=== PATIENT | female | born 1965 | race Caucasian/White ===

== ENCOUNTER → 2021-04-30 07:17 | Outpatient (CLI) | payer BC, SELFPAY ==
[2021-04-30 10:27] LABS: Anion Gap 7 (5-15); BUN 15 mg/dL (7-18); BUN/Creat Ratio 20.2 RATIO (10-20); Calcium,Total 9.4 mg/dL (8.5-10.1); Chloride 105 mmol/L (98-107); Cholesterol 159 mg/dL (200); Creatinine, Serum 0.74 mg/dL (0.55-1.02); EST Glomerular Filtration Rate 86 mL/min (>60); Est Glom Filt Rate - Afr Amer 103 mL/min (>60); Free T3 2.4 pg/mL (2.18-3.98); Glucose 91 mg/dL (74-106); High Density Lipoprotein 50 mg/dL; Potassium 3.9 mmol/L (3.5-5.1); Sodium Level 143 mmol/L (136-145); T4 Free Direct 1.06 ng/dL (0.76-1.46); Thyroid Stim Hormone (TSH) 1.57 uIU/mL (0.358-3.74); Triglycerides 101 mg/dL; Very Low Density Lipoprotein 20 mg/dL (5-40)
[2021-04-30 10:28] LABS: Hemoglobin A1c 5.3 % (3.8-5.6)
== END ==
DX: E03.9 Hypothyroidism, unspecified (principal); I10 Essential (primary) hypertension; E78.2 Mixed hyperlipidemia
CPT/HCPCS: 36415; 80048; 80061; 83036; 84439; 84443; 84481

== ENCOUNTER 2021-09-12 09:16 | Outpatient (CLI) | payer BC, SELFPAY ==
[2021-09-12 11:13] LABS: Anion Gap 5 (5-15); BUN 14 mg/dL (7-18); BUN/Creat Ratio 17.9 RATIO (10-20); Calcium,Total 9.2 mg/dL (8.5-10.1); Chloride 107 mmol/L (98-107); Cholesterol 155 mg/dL (200); Creatinine, Serum 0.78 mg/dL (0.55-1.02); EST Glomerular Filtration Rate 81 mL/min (>60); Est Glom Filt Rate - Afr Amer 98 mL/min (>60); Glucose 99 mg/dL (74-106); High Density Lipoprotein 57 mg/dL; Potassium 3.5 mmol/L (3.5-5.1); Sodium Level 141 mmol/L (136-145); Thyroid Stim Hormone (TSH) 4.07 uIU/mL (0.358-3.74); Triglycerides 104 mg/dL; Very Low Density Lipoprotein 21 mg/dL (5-40)
[2021-09-12 11:24] LABS: Hemoglobin A1c 5.3 % (3.8-5.6)
== END 2021-09-12 23:59 | disposition home or self-care (01) ==
PROVIDERS: Visit Provider Family Medicine
DX: R73.03 Prediabetes (principal); E03.9 Hypothyroidism, unspecified; I10 Essential (primary) hypertension; E78.2 Mixed hyperlipidemia
CPT/HCPCS: 36415; 80048; 80061; 83036; 84439; 84443

== ENCOUNTER → 2022-03-12 | Outpatient (CLI) | payer BC, SELFPAY ==
[2022-03-12 15:42] LABS: Anion Gap 5 (5-15); BUN 10 mg/dL (7-18); BUN/Creat Ratio 12.4 RATIO (10-20); Calcium,Total 9.3 mg/dL (8.5-10.1); Chloride 105 mmol/L (98-107); Cholesterol 170 mg/dL (200); EST Glomerular Filtration Rate 78 mL/min (>60); Est Glom Filt Rate - Afr Amer 94 mL/min (>60); Glucose 102 mg/dL (74-106); High Density Lipoprotein 53 mg/dL; Potassium 3.5 mmol/L (3.5-5.1); Sodium Level 141 mmol/L (136-145); Thyroid Stim Hormone (TSH) 0.09 uIU/mL (0.358-3.74); Triglycerides 132 mg/dL; Very Low Density Lipoprotein 26 mg/dL (5-40)
[2022-03-12 15:57] LABS: Hemoglobin A1c 5.3 % (3.8-5.6)
== END | disposition home or self-care (01) ==
LOC: MTLAB 11:45
PROVIDERS: Visit Provider Family Medicine
DX: R73.03 Prediabetes (principal); E03.9 Hypothyroidism, unspecified; I10 Essential (primary) hypertension; E78.2 Mixed hyperlipidemia
CPT/HCPCS: 36415; 80048; 80061; 83036; 84443

== ENCOUNTER → 2022-09-23 | Outpatient (CLI) | payer OTHER, SELFPAY ==
[2022-09-23 10:35] LABS: Hemoglobin A1c 5.5 % (3.8-5.6)
[2022-09-23 10:38] LABS: Anion Gap 6 (5-15); BUN 15 mg/dL (7-18); BUN/Creat Ratio 18.1 RATIO (10-20); Calcium,Total 9.5 mg/dL (8.5-10.1); Chloride 109 mmol/L (98-107); Cholesterol 161 mg/dL (200); Creatinine, Serum 0.83 mg/dL (0.55-1.02); EST Glomerular Filtration Rate 75 mL/min (>60); Est Glom Filt Rate - Afr Amer 91 mL/min (>60); Glucose 104 mg/dL (74-106); High Density Lipoprotein 61 mg/dL; Potassium 3.7 mmol/L (3.5-5.1); Sodium Level 141 mmol/L (136-145); Triglycerides 71 mg/dL; Uric Acid 5.7 mg/dL (2.6-6.0); Very Low Density Lipoprotein 14 mg/dL (5-40)
== END | disposition home or self-care (01) ==
DX: E03.9 Hypothyroidism, unspecified (principal); I10 Essential (primary) hypertension; E78.2 Mixed hyperlipidemia; M1A.9XX0 Chronic gout, unspecified, without tophus (tophi); R73.03 Prediabetes
CPT/HCPCS: 36415; 80048; 80061; 83036; 84443; 84550

== ENCOUNTER → 2023-02-21 | Outpatient (CLI) | payer OTHER, SELFPAY ==
[2023-02-21 11:25] LABS: Hemoglobin A1c 5.4 % (3.8-5.6)
[2023-02-21 11:35] LABS: Anion Gap 5 (5-15); BUN 13 mg/dL (7-18); Calcium,Total 9.1 mg/dL (8.5-10.1); Chloride 107 mmol/L (98-107); Cholesterol 165 mg/dL (200); Creatinine, Serum 0.82 mg/dL (0.55-1.02); EST Glomerular Filtration Rate 76 mL/min (>60); Est Glom Filt Rate - Afr Amer 93 mL/min (>60); Glucose 97 mg/dL (74-106); High Density Lipoprotein 57 mg/dL; Potassium 3.4 mmol/L (3.5-5.1); Sodium Level 141 mmol/L (136-145); Triglycerides 71 mg/dL; Very Low Density Lipoprotein 14 mg/dL (5-40)
== END | disposition home or self-care (01) ==
DX: R73.03 Prediabetes (principal)
CPT/HCPCS: 36415; 80048; 80061; 83036

== ENCOUNTER → 2023-09-16 | Outpatient (CLI) | payer SELFPAY ==
--- OUTSIDE RECORDS SUMMARY | 2023-09-16 12:01 | XMS RPT_ITS | CCD ---
Author Name Unknown Address [address] [facility] [address] [place] [address] Organization [facility] Care Team Providers Care Museum Informatics Specialist Name Role Phone Joshua Garcia Primary Care Provider Tory Vickers MD Primary Care Provider CHANDRIKA SYLVESTER Referring Unavailable TORY VICKERS Primary Care Unavailable Paolo Doe Unavailable Unavailable Unavailable Paolo Doe Unavailable Unavailable Unavailable Dr. Paolo Doe Attending Unava ilwu Doe, Dr. Paolo Crews Referring Unava ilwu Doe, Dr. Paolo Crews Referring Unava ilwu Doe, Dr. Paolo Crews Attending Carroll ilwu Doe, Dr. Paolo Crews Referring Unava ilwu Doe, Dr. Paolo Crews Attending Paolo Stockton MD Primary Care Provider PAOLO DOE Attending Unavailable PAOLO DOE Primary Care Unavailable PAOLO DOE Attending Unavailable PAOLO DOE Primary Care Unavailable Allergies Allergy Classification Reported Allergen(s) Allergy Type Date of Onset Reaction(s) Facility Aminoketones (2 sources) buPROPion; Translations: [buPROPion HCl TABS] Drug Allergy 1 [facility] Unclassified (9 sources) Iodinated Contrast Media; Translations: [Iodinated Contrast Media] Allergy to drug (finding) 3 [facility] 3 Repository (9 sources) buPROPion; Translations: [buPROPion HCl TABS] Drug Allergy 1 Rash, [place], [place] (2 sources) Iodides Propensity to adverse reactions to drug 1 [place] (1 source) Iodinated Contrast Media Drug Allergy 3 [facility] Work Phone: (1 source) buPROPion; Translations: [BUPROPION] Drug Allergy 1 [facility] 3 Repository Medications Current Medications Medication Drug Class(es) Dates Sig (Normalized) Sig (Original) ARIPiprazole 2 mg oral tablet (1 source) Atypical Antipsychotic take 1 tablet by mouth once daily ARIPiprazole (ABILIFY) 2 MG tablet Take 2 mg by mouth daily 0 Active ascorbic acid 500 mg chewable tablet (3 sources) Vitamin C ascorbic acid (Vitamin C) 500 mg chewable tablet Chew 2 tablets (1,000 mg) once daily. 0 Active Completed/Discontinued Medications Medication Drug Class(es) Dates Sig (Normalized) Sig (Original) atorvastatin 20 mg oral tablet (13 sources) HMG-CoA Reductase Inhibitor Start: 03-10-2020 take 1 tablet by mouth once daily Atorvastatin Calcium 20 MG Oral Tablet TAKE 1 TABLET DAILY. Quantity: 90 Refills: 1 Ordered: 12-Sep-2022 Paolo Doe MD Start : 09-Mar-2021 Active Problems Active Problems Problem Classification Problem Date Documented Da te Episodic/Chronic Anxiety disorders (8 sources) Anxiety; Translations: [Other anxiety states] Chronic Diabetes mellitus without complication (12 sources) Prediabetes; Translations: [Other abnormal glucose] Onset: 01-08-2023 01-08-2023 Episodic Disorders of lipid metabolism (11 sources) Mixed hyperlipidemia; Translations: [Mixed hyperlipidemia] Onset: 01-08-2023 01-08-2023 Chronic Essential hypertension (14 sources) Hypertensive disorder; Translations: [Essential (primary) hypertension] Onset: 10-27-2011 10-27-2011 Chronic Gout and other crystal arthropathies (5 sources) Gout; Translations: [Chronic 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)] Chronic Mood disorders (10 sources) Depressive disorder; Translations: [Major depressive disorder, single episode, unspecified] Onset: 09-23-2011 09-23-2011 Chronic Other inflammatory condition of skin (5 sources) Psoriasis; Translations: [Other psoriasis] Chronic Other nutritional; endocrine; and metabolic disorders (2 sources) Obesity; Translations: [Obesity, unspecified] Onset: 05-30-2017 05-30-2017 Chronic Other screening for suspected conditions (not mental disorders or infectious disease) (3 sources) Patient encounter status; Translations: [Encounter for screening for malignant neoplasm of colon] Onset: 03-19-2023 Resolved: 01-21-2017 01-21-2017 Episodic Residual codes; unclassified (1 source) Immunity to measles and mumps and rubella by positive serology; Translations: [Immunity to measles, mumps, and rubella determined by serologic test] Thyroid disorders (13 sources) Hypothyroidism; Translations: [Hypothyroidism, unspecified] Onset: 11-08-2022 05-30-2017 Chronic Unclassified (2 sources) Patient encounter status; Translations: [Encounter for hepatitis C screening test for low risk patient] Resolved: 01-21-2017 01-21-2017 Past or Other Problems Problem Classification Problem Date Documented Da te Episodic/Chronic Fracture of upper limb (2 sources) Fracture of shaft of humerus ; Translations: [Displaced oblique fracture of shaft of humerus, unspecified arm, subsequent encounter for fracture with nonunion] Onset: 03-10-2012 Episodic Hemorrhoids (2 sources) Hemorrhoids; Translations: [Unspecified hemorrhoids] Onset: 01-23-2015 01-23-2015 Episodic Results Test Name Value Interpretation Reference Range Facil ity Vital Signs Date Time Vital Sign Value Performing Clinician Facility 01-08-2023 15:48-0400 Body mass index (BMI) [Ratio] 32.65 kg/m2 Paolo Doe MD Work Phone: [facility] 01-08-2023 15:48-0400 Body weight 89.54 kg Paolo Doe MD Work Phone: [facility] 01-08-2023 15:48-0400 Diastolic blood pressure 86 mm[Hg] Paolo Doe MD Work Phone: [facility] 01-08-2023 15:48-0400 Heart rate 70 /min Paolo Doe MD Work Phone: [facility] 01-08-2023 15:48-0400 SaO2% (BldA) [Mass fraction] 96 % Paolo Doe MD Work Phone: [facility] 01-08-2023 15:48-0400 Systolic blood pressure 158 mm[Hg] Paolo Doe MD Work Phone: [facility] 09-12-2022 09:35-0500 Diastolic blood pressure 92 mm[Hg] Paolo Doe Work Phone: [facility] DO Work Phone: 09-12-2022 09:35-0500 Systolic blood pressure 160 mm[Hg] Paolo Doe Work Phone: [facility] DO Work Phone: 09-12-2022 09:20-0500 Body mass index (BMI) [Ratio] 33.74 kg/m2 Paolo Doe Work Phone: [facility] DO Work Phone: 09-12-2022 09:20-0500 Body surface area Derived from formula 2 m2 Paolo Doe Work Phone: [facility] DO Work Phone: 09-12-2022 09:20-0500 Body weight 92.53 kg Paolo Doe Work Phone: [facility] DO Work Phone: 09-12-2022 09:20-0500 Diastolic blood pressure 92 mm[Hg] Paolo Doe Work Phone: [facility] DO Work Phone: 09-12-2022 09:20-0500 Heart rate 64 /min Paolo Doe Work Phone: [facility] DO Work Phone: 09-12-2022 09:20-0500 Systolic blood pressure 162 mm[Hg] Paolo Doe Work Phone: [facility] DO Work Phone: 03-14-2022 09:00-0400 Body mass index (BMI) [Ratio] 32.61 kg/m2 Paolo Ted Arun Work Phone: [facility] Work Phone: 03-14-2022 09:00-0400 Body surface area Derived from formula 1.97 m2 Paolo Ted Osunaeulalio Work Phone: [facility] Work Phone: 03-14-2022 09:00-0400 Body weight 89.45 kg Paolo Ted Osunaeulalio Work Phone: [facility] Work Phone: 03-14-2022 09:00-0400 Diastolic blood pressure 60 mm[Hg] Paolo Ted Osunaeulalio Work Phone: [facility] Work Phone: 03-14-2022 09:00-0400 Systolic blood pressure 112 mm[Hg] Paolo Ted Osunaeulalio Work Phone: [facility] Work Phone: 09-14-2021 09:10-0500 Body mass index (BMI) [Ratio] 32.94 kg/m2 Paolo Ted Osunaeulalio Work Phone: [facility] DO Work Phone: 09-14-2021 09:10-0500 Body surface area Derived from formula 1.98 m2 Paolo Ted Osunaeulalio Work Phone: [facility] DO Work Phone: 09-14-2021 09:10-0500 Body weight 90.36 kg Paolo Doe Work Phone: [facility] DO Work Phone: 09-14-2021 09:10-0500 Diastolic blood pressure 62 mm[Hg] Paolo Osunaeulalio Work Phone: [facility] DO Work Phone: 09-14-2021 09:10-0500 Systolic blood pressure 126 mm[Hg] Paolo Osunaeulalio Work Phone: [facility] DO Work Phone: 09-14-2021 09:08-0500 Body temperature 96.1 [degF] Paoloimtiaz Osunaeulalio Work Phone: [facility] DO Work Phone: 03-09-2021 13:41-0400 Body height 165.61 cm Paolo Osunaeulalio Work Phone: [facility] Work Phone: 03-09-2021 13:41-0400 Body mass index (BMI) [Ratio] 33.34 kg/m2 Paolo Doe Work Phone: [facility] Work Phone: 03-09-2021 13:41-0400 Body surface area Derived from formula 1.99 m2 Paolo Osunaeulalio Work Phone: [facility] Work Phone: 03-09-2021 13:41-0400 Body temperature 97 [degF] Paolo Osunaeulalio Work Phone: [facility] Work Phone: 03-09-2021 13:41-0400 Body weight 91.45 kg Paolo Osunaeulalio Work Phone: [facility] Work Phone: 03-09-2021 13:41-0400 Diastolic blood pressure 68 mm[Hg] Paolo Doe Work Phone: [facility] Work Phone: 03-09-2021 13:41-0400 Systolic blood pressure 124 mm[Hg] Paolo Doe Work Phone: [facility] Work Phone: Encounters Encounter Date Encounter Type Care Provider Facility Start: 03-19-2023 End: 03-19-2023 ambulatory [facility] Ambulatory Start: 01-08-2023 End: 01-08-2023 ambulatory [facility] Ambulatory Start: 01-08-2023 End: 01-08-2023 Office outpatient visit 15 minutes Paolo Doe MD Work Phone: [facility] Procedures Date Procedure Procedure Detail Performing Clinician Start: 12-28-2020 Assay of thyroid stimulating hormone tsh CHANDRIKA SYLVESTER Start: 12-28-2020 Lipid panel CHANDRIKA BRIAN N Start: 12-28-2020 Comprehensive metabo lic panel Chandrika Sylvester Start: 12-28-2020 Lipid panel Chandrika Brian n Start: 12-28-2020 Thyrotropin [Units/v olume] in Serum or Plasma Paolo Doe MD Work Phone: section Paolo Henson Work Phone: Medical termination of Paolo Doe Work Phone: Operation on fracture Paolo Doe Work Phone: Plan of Treatment Date Care Activity Detail Author Start: 01-21-2027 DTaP/Tdap/Td vaccine (2 - Td) DTaP/Tdap/Td vaccine (2 - Td) [place] Start: 01-21-2027 DTaP/Tdap/Td Vaccine s (2 - Td or Tdap) DTaP/Tdap/Td Vaccines (2 - Td or Tdap) [facility] Start: 01-23-2025 Colon cancer screen colonoscopy Colon cancer screen colonoscopy [place], [place] Start: 01-23-2025 Screening for malign ant neoplasm of colon Colon cancer screen colonoscopy [facility] [employer] Work Phone: Start: 10-22-2023 Lipid screen Lipid screen [place], [place] Start: 04-06-2023 Screening for malign ant neoplasm of cervix Cervical cancer screen [facility] Work Phone: Start: 03-07-2023 EPV, Provider: Paolo Doe, Status: Pen, Time: 1:40 PM EPV, Provider: Paolo Doe, Status: Pen, Time: 1:40 PM [facility] DO Work Phone: Start: 03-07-2023 End: 03-07-2023 Patient encounter procedure 03/07/2023 1:40 PM EDT Office Visit [facility] [address] [facility] [address] [place] [address] [place] [address] [facility] [address] [place] [address] [facility] Start: 01-08-2023 End: 01-09-2024 Basic metabolic 2000 panel - Serum or Plasma Basic metabolic panel Lab Routine Prediabetes Expected: 01/08/2023 (Approximate), Expires: 01/09/2024 [facility] Work Phone: Immunizations Immunization Date Immunization Notes Care Provider Fa cili 05-22-2022 influenza, injectabl e, quadrivalent, preservative free Paolo Doe Work Phone: [facility] DO Work Phone: 05-03-2022 Moderna COVID-19 Biv al Booster 50 MCG/0.5ML Intramuscular Suspension Paolo Doe Work Phone: [facility] DO Work Phone: 12-07-2021 Comirnaty 30 MCG/0.3 ML Intramuscular Suspension Paolo Doe Work Phone: [facility] Work Phone: 07-10-2021 Moderna COVID-19 Vac cine 100 MCG/0.5ML Intramuscular Suspension Paolo Doe Work Phone: [facility] DO Work Phone: 05-21-2021 Seasonal, quadrivale nt, recombinant, injectable influenza vaccine, preservative free Paolo Ted Doe Work Phone: [facility] DO Work Phone: 11-22-2020 Moderna COVID-19 Vac cine 100 MCG/0.5ML Intramuscular Suspension Paolo C Arun Work Phone: [facility] DO Work Phone: 10-25-2020 Moderna COVID-19 Vac cine 100 MCG/0.5ML Intramuscular Suspension Paolo C Doreulalio Work Phone: [facility] DO Work Phone: 05-11-2020 Seasonal, quadrivale nt, recombinant, injectable influenza vaccine, preservative free Paolo Ted Doe Work Phone: [facility] DO Work Phone: 10-14-2019 zoster vaccine recombinant Paolo C Arun Work Phone: [facility] DO Work Phone: 06-11-2019 zoster vaccine recombinant Paolo C Dornan Work Phone: [facility] DO Work Phone: 05-18-2019 measles, mumps and rubella virus vaccine Tory Vickers MD Work Phone: [facility] Work Phone: 04-23-2019 influenza, injectabl e, quadrivalent, preservative free [facility], [place] 05-14-2018 Influenza Vaccine, unspecified formulation [facility] , [place] 05-07-2018 influenza, injectabl e, quadrivalent, preservative free Paolo Ted Doe Work Phone: [facility] DO Work Phone: 05-30-2017 influenza, injectabl e, quadrivalent, preservative free [facility], [place] 01-21-2017 tetanus toxoid, redu piero diphtheria toxoid, and acellular pertussis vaccine, adsorbed [facility], [place] 07-22-2016 influenza, injectabl e, quadrivalent, preservative free [facility] 07-22-2016 pneumococcal polysaccharide vaccine, 23 valent [facility], [place] 04-28-2013 Influenza Vaccine, unspecified formulation Tory Vickers MD Work Phone: [facility] Work Phone: 04-28-2013 influenza virus vacc ine, unspecified formulation [facility] , [place] 04-28-2013 influenza, seasonal, injectable Paolo Doe Work Phone: [facility] [address] DO Work Phone: 04-20-2012 Influenza Vaccine, unspecified formulation Tory Vickers MD Work Phone: [facility] Work Phone: 04-20-2012 influenza virus vacc ine, unspecified formulation [facility] , [place] 04-20-2012 influenza, seasonal, injectable Paolo Doe Work Phone: [facility] DO Work Phone: 07-20-2009 novel influenza-H1N1 -09, preservative-free, injectable Tory Vickers MD Work Phone: [facility] Work Phone: Payers Date Payer Category Payer Private Health Insurance [id number] [address] [facility] [id number] 2022-Present [address] [place] [address] [id number] 2019 Private Health Insurance [id number] 2017 Private Health Insurance [facility] PL[facility] xxxxxxxxx 2017-Present [phone] [address] [place] [address] xxxxxxxxx [id number] 1964 Unknown [id number] 1964 Unknown [id number] 1964 Unknown [id number] 1964 Unknown [id number] 1964 Unknown [id number] 1964 Unknown [id number] Unknown Unknown [id number] Social History Date Type Detail Facility Start: 04-23-2019 End: 01-08-2023 Tobacco smoking status NHIS Never smoker [place], [place] Start: 04-23-2019 End: 01-08-2023 Alcohol intake Yes [place], [place] Start: 1965 Sex Assigned At Not on file M [place], [place] Start: 04-06-2020 Tobacco use and exposure Never used [facility] [employer] Start: 04-06-2020 Alcohol intake Current drinke r of alcohol (finding) [facility] [employer] Phone: Start: 04-06-2020 End: 01-08-2023 Alcohol intake [facility] [employer] Phone: Start: 01-08-2023 Tobacco use and exposure User of smokeless tobacco [facility] Work Phone: Start: 01-08-2023 Tobacco Comment vaping [facility] Work Phone: Start: 12-29-2022 End: 01-08-2023 Exposure to SARS-CoV-2 (event) Not sure [facility] Work Phone: Evaluation + Plan note 01-08-2023 Assessment & Plan Note - Paolo Doe MD - 01/08/2023 4:35 PM EDT Note Date & Type Note Facility 01-08-2023 Evaluation + Plan note Associated Problem(s): Prediabetes Check lipid panel, BMP, A1c prior to next visit [facility] Work Phone: Evaluation + Plan note 01-08-2023 Assessment & Plan Note - Paolo Doe MD - 01/08/2023 4:35 PM EDT Note Date & Type Note Facility 01-08-2023 Evaluation + Plan note Associated Problem(s): Hypertension, benign Not at goal. Will increase ACEi/hydrochlorothiazide combo and follow up in 2 months [facility] Work Phone: Note 01-08-2023 Assessment & Plan Note - Paolo Doe MD - 01/08/2023 4:35 PM EDTAssessment & Plan Note - Paolo Doe MD - 01/08/2023 4:35 PM EDT Note Date & Type Note Facility 01-08-2023 Miscellaneous Notes Associate d Problem(s): Prediabetes Check lipid panel, BMP, A1c prior to next visit Associated Problem(s): Hypertension, benign Not at goal. Will increase ACEi/hydrochlorothiazide combo and follow up in 2 months documented in this encounter [facility] Work Phone: History of Present illness Narrative 01-08-2023 Paolo Doe MD - 01/08/2023 4:00 PM EDT Note Date & Type Note Facility 01-08-2023 History of Present illness Narrative Subjective Patient ID: Gabriel Mackenzie is a 57 y.o. female who presents for Hypertension (FU). Hypertension Pertinent negatives include no chest pain, headaches or shortness of breath. Gabriel presents for follow up visit. She feels well but frustrated that BP still elevated. Review of Systems Constitutional: Negative for fatigue and unexpected weight change. Respiratory: Negative for shortness of breath. Cardiovascular: Negative for chest pain. Neurological: Negative for headaches. Objective Vitals: 01/08/23 1548 BP: 158/86 BP Location: Left arm Pulse: 70 SpO2: 96% Weight: 89.5 kg (197 lb 6.4 oz) Physical Exam Constitutional: Appearance: Normal appearance. HENT: Head: Normocephalic and atraumatic. Eyes: Extraocular Movements: Extraocular movements intact. Pupils: Pupils are equal, round, and reactive to light. Cardiovascular: Rate and Rhythm: Normal rate and regular rhythm. Pulmonary: Effort: Pulmonary effort is normal. Breath sounds: Normal breath sounds. Abdominal: General: There is no distension. Tenderness: There is no abdominal tenderness. Musculoskeletal: Cervical back: Normal range of motion and neck supple. Neurological: General: No focal deficit present. Mental Status: She is alert and oriented to person, place, and time. Psychiatric: Mood and Affect: Mood normal. Behavior: Behavior normal. Assessment/Plan There are no diagnoses linked to this encounter. Problem List Items Addressed This Visit Circulatory Hypertension, benign - Primary Not at goal. Will increase ACEi/hydrochlorothiazide combo and follow up in 2 months Relevant Medications benazepriL-hydrochlorothiazide (Lotensin HCT) 20-25 mg tablet Endocrine/Metabolic Prediabetes Check lipid panel, BMP, A1c prior to next visit Relevant Orders Hemoglobin A1c Basic metabolic panel Lipid panel documented in this encounter [facility] Work Phone: History of Present illness Narrative 05-12-2022 Note Date & Type Note Facility 05-12-2022 History of Present illness Narrative Gabriel presents for 6 month f/u of her chronic issues. She had stopped her Metformin and ACEi/HCTZ combination approximately 4 months ago, had wanted to get rid of some of her medication. Her mood has been good. [facility] DO Work Phone: Evaluation note Note Date & Type Note Facility documented in this encounter [facility] Work Phone: History of Present illness Narrative Note Date & Type Note Facility History of Present illness Narrative Gabriel presents as new patient. Her last doctor was in [place], [place]. She has history of HTN, hypothyroidism, depression, hyperlipidemia, and prediabetes. In past she has seen warper tender. She has lost 50 lbs in 3 years! She has taken premier protein with inulin which has helped her. [facility] Work Phone: History of Present illness Narrative Note Date & Type Note Facility History of Present illness Narrative Gabriel presents for f/u of her chronic issues. We reviewed recent blood work results, which generally look very good. She feels well; her goal is to lose more weight so she can get off of some of her medication. [facility] DO Work Phone: History of Present illness Narrative Note Date & Type Note Facility History of Present illness Narrative Gabriel presents for f/u of her chronic issues. She is overall doing well. Working on diet and lifestyle changes. We reviewed recent blood work. Her A1c is down to 5.3, cholesterol well controlled and thyroid function WNL. [facility] Work Phone: Summary Purpose Family History No Family History Records FoundUnknown Family Member Name Dates Details Family history of coronary a rtery disease: Mother(V17.3, Z82.49) Status:Active Family history of type 2 belem betes mellitus: Mother(V18.0, Z83.3) Status:Active Family history of thyroid di sease: Mother(V18.19, Z83.49) Status:Active Unknown Family Member Name Dates Details Family history of thyroid di sease: Mother(V18.19, Z83.49) Status:Active Family history of type 2 belem betes mellitus: Mother(V18.0, Z83.3) Status:Active Family history of coronary a rtery disease: Mother(V17.3, Z82.49) Status:Active Unknown Family Member Name Dates Details Family history of coronary a rtery disease: Mother(V17.3, Z82.49) Status:Active Family history of type 2 belem betes mellitus: Mother(V18.0, Z83.3) Status:Active Family history of thyroid di sease: Mother(V18.19, Z83.49) Status:Active Unknown Family Member Name Dates Details Family history of coronary a rtery disease: Mother(V17.3, Z82.49) Status:Active Family history of type 2 belem betes mellitus: Mother(V18.0, Z83.3) Status:Active Family history of thyroid di sease: Mother(V18.19, Z83.49) Status:Active Unknown Family Member Name Dates Details Family history of coronary a rtery disease: Mother(V17.3, Z82.49) Status:Active Family history of type 2 belem betes mellitus: Mother(V18.0, Z83.3) Status:Active Family history of thyroid di sease: Mother(V18.19, Z83.49) Status:Active Unknown Family Member Name Dates Details Family history of coronary a rtery disease: Mother(V17.3, Z82.49) Status:Active Family history of type 2 belem betes mellitus: Mother(V18.0, Z83.3) Status:Active Family history of thyroid di sease: Mother(V18.19, Z83.49) Status:Active Unknown Family Member Name Dates Details Family history of coronary a rtery disease: Mother(V17.3, Z82.49) Status:Active Family history of type 2 belem betes mellitus: Mother(V18.0, Z83.3) Status:Active Family history of thyroid di sease: Mother(V18.19, Z83.49) Status:Active Unknown Family Member Name Dates Details Family history of coronary a rtery disease: Mother(V17.3, Z82.49) Status:Active Family history of type 2 belem betes mellitus: Mother(V18.0, Z83.3) Status:Active Family history of thyroid di sease: Mother(V18.19, Z83.49) Status:Active Advance Directives No Advanced Directives Records FoundDocuments on File Type Date Recorded Patient Grind Operator Expl anation Advance Directives and Livin g Will Advance Directives and Livin g Will 10/29/2016 7:17 AM Power of Labour Market Economist Latest Code Status on File Code Status Date Activated Date Inactivated Comments Full Code 01/23/2015 10:03 AM 01/24/2015 3:07 AM Full Code 03/16/2012 8:19 AM 03/17/2012 12:16 PM Documents on File Type Date Recorded Patient Grind Operator Expl anation ACP-Advance Directive ACP-Power of [employer] Market Economist ACP-Advance Directive 10/29/2016 7:17 AM Assessments Diagnosis Immunity to measles, mumps, and rubella determined by serologic test Encounter for hepatitis C screening test for low risk patient Chief Complaint patient needs new PCP and medication refillsbp follow up and would like to speak about her thyroid* would like to discuss and go over her labs * and needs medication refills GABRIEL MACKENZIE is here for a follow-up for . HTN- DID D/C [facility] 4 MONTHS AGO. Additional Source Comments INFORMATION SOURCE (unrecogn ized section and content) DATE CREATED AUTHOR AUTHOR'S ORGANIZ ATION 04/12/2020 [facility] DATE CREATED AUTHOR AUTHOR'S ORGANIZ ATION 12/31/2020 [facility] DATE CREATED AUTHOR AUTHOR'S ORGANIZ ATION 09/13/2022 [facility] DATE CREATED AUTHOR AUTHOR'S ORGANIZ ATION 09/13/2022 [employer] DATE CREATED AUTHOR AUTHOR'S ORGANIZ ATION 04/20/2023 [facility] Reason for Visit (unrecogniz ed section and content) Care Teams (unrecognized sec tion and content) FOR RECORDS PERTAINING TO PATIENTS WHO ARE OR HAVE BEEN ENROLLED IN A CHEMICAL DEPENDENCY/SUBSTANCEABUSE PROGRAM, SOME INFORMATION MAY BE OMITTED. This clinical summary was aggregated from multiple sources. Caution should be exercised in using it in the provision of clinical care. This summary normalizes information from multiple sources, and as a consequence, information in this document may materially change the coding, format and clinical context of patient data. In addition, data may be omitted in some cases. CLINICAL DECISIONS SHOULD BE BASED ON THE PRIMARY CLINICAL RECORDS. [facility] [employer] [facility]. provides no warranty or guarantee of the accuracy or completeness of information in this document.
[2023-09-16 15:26] LABS: ALB/GLOB Ratio 1.1 RATIO (0.9-2.4); AST(SGOT) 17 U/L (15-37); Alanine Aminotransfer ALT/SGPT 25 U/L (13-56); Albumin, Serum 3.7 g/dL (3.2-5.0); Alkaline Phosphatase 74 U/L (45-117); Anion Gap 5 (5-15); BUN 13 mg/dL (7-18); BUN/Creat Ratio 17.1 RATIO (10-20); Calcium,Total 9.3 mg/dL (8.5-10.1); Chloride 107 mmol/L (98-107); Cholesterol 169 mg/dL (200); Creatinine, Serum 0.76 mg/dL (0.55-1.02); EST Glomerular Filtration Rate 83 mL/min (>60); Est Glom Filt Rate - Afr Amer 100 mL/min (>60); Globulin 3.5 g/dL (2.2-4.2); Glucose 101 mg/dL (74-106); Hemoglobin A1c 5.4 % (3.8-5.6); High Density Lipoprotein 71 mg/dL; Potassium 3.7 mmol/L (3.5-5.1); Protein, Total 7.2 g/dL (6.4-8.2); Sodium Level 144 mmol/L (136-145); T4 Free Direct 1.11 ng/dL (0.76-1.46); Thyroid Stim Hormone (TSH) 1.42 uIU/mL (0.358-3.74); Triglycerides 83 mg/dL; Very Low Density Lipoprotein 17 mg/dL (5-40)
== END | disposition home or self-care (01) ==
LOC: MTLAB 11:41
DX: R73.03 Prediabetes (principal); E78.2 Mixed hyperlipidemia; E03.9 Hypothyroidism, unspecified; I10 Essential (primary) hypertension
CPT/HCPCS: 36415; 80053; 80061; 83036; 84439; 84443

== ENCOUNTER → 2024-08-17 | Outpatient (CLI) | payer MEDICAID, SELFPAY ==
--- NOTE | 2024-08-17 09:59 | BI_ITS ---
MAMMOGRAPHY - BILATERAL SCREENING REASON FOR EXAM: Female, 59 years old. Routine annual screening examination. PERTINENT HISTORY: Non-contributory. TECHNIQUE: Digital bilateral breast nae (3D mammographic acquisition) in the CC and MLO projections. 2-D mediolateral oblique (MLO) and craniocaudad (CC) views of both breasts were obtained. CAD: Full Field Digital Mammography with Computer Added Detection was performed. COMPARISON: Comparison is made with prior outside examination dated April 06, 2020. FINDINGS: Breast Composition: The breasts are heterogeneously dense, which may obscure small masses. There are no dominant masses or suspicious calcifications. No other significant abnormalities are identified. There has been no significant change since the prior study. BI/SCRN MAMM (CAD)W/NAE BILAT IMPRESSION: Stable bilateral screening mammogram. Yearly follow-up mammogram recommended. (A) ASSESSMENT CATEGORY: BIRADS Category 1: Negative. A letter regarding these results will be sent to the patient by the facility within 30 days. Approximately 10% of breast cancers are not detected by mammography. A normal mammogram should not delay biopsy of a clinically suspicious abnormality. [id number] Electronically Signed: Santos Coronel MD at 10:25 EST ,
== END | disposition home or self-care (01) ==
DX: Z12.31 Encounter for screening mammogram for malignant neoplasm of breast (principal)
CPT/HCPCS: 77063; 77067

== ENCOUNTER → 2025-04-13 | Outpatient (CLI) | payer MEDICAID, SELFPAY | END | disposition home or self-care (01) | LOC: MTLAB 09:08 | PROVIDERS: Referring Provider Family Medicine; Visit Provider Family Medicine | DX: E03.9 Hypothyroidism, unspecified (principal) | CPT/HCPCS: 36415; 84439; 84443 ==